=== PATIENT | female | born 1970 | race Caucasian/White ===

== ENCOUNTER 2018-11-24 06:01 | Day surgery (SDC) | payer MEDICAID, SELFPAY ==
[2018-10-19 13:03] VITALS: BMI 22.3
[2018-11-20 12:36] LABS: Hematocrit 44.8 % (37-47); Mean Corp Hgb Conc 33.5 g/gl (32-36); Mean Corpuscular Hgb 29.8 pg (27.0-32.0); Mean Corpuscular Volume 88.9 fL (81-99); Platelet Count 312 K/mm3 (150-450); RBC Distribution Width CV 13.3 % (11.6-14.6); Red Blood Count 5.04 M/mm3 (4.2-5.4); White Blood Count 9.7 K/mm3 (4.4-11.0)
[2018-11-20 12:37] LABS: Scan Indicated on CBC? Y/N NO
--- NOTE | 2018-11-20 13:29 | EKG12_ITS ---
Test Reason : PREOP Blood Pressure : / mmHG Vent. Rate : 055 BPM Atrial Rate : 055 BPM P-R Int : 162 ms QRS Dur : 084 ms QT Int : 406 ms P-R-T Axes : 074 066 070 degrees QTc Int : 388 ms Sinus bradycardia Otherwise normal ECG Confirmed by CHUCK HUBBARD, CHARU ([id number]), photograph editor MATHIEU LIVE ([id number]) on 11/21/2018 12:51:52 PM Referred By: Rashid Rogers Confirmed By:CHARU WOODS MD
[2018-11-24] VITALS (11 sets, daily range): BP systolic 74–118; BP diastolic 49–83; PULSE 51–73; RESP 12–18; TEMP 36.1–36.8; O2SAT 95–97; BMI 22.4
[2018-11-24] MEDS: Bupiv/Epi 0.25% 30 ML Vial (07:30)
--- NOTE | 2018-11-24 08:09 | OP.PCM_ITS ---
Problem List (1) Ventral incisional hernia Status: Acute Report of Operation Date of Procedure: 11/24/18 Pre-Operative Diagnosis: Incisional ventral hernia Post-Operative Diagnosis: Same Surgery/Procedure Performed:: Incisional ventral hernia repair with mesh Specimen's removed: None Description of Procedure: The patient was brought back to the operating room and MAC anesthesia was induced. The patient's abdomen was prepped and draped in the usual sterile fashion. Next a incision site was marked with a pen on the superior portion of the umbilicus. This area was then anesthetized with a mixture of Marcaine and lidocaine. Next an incision was made with scalpel and deepened to the hernia sac. The hernia sac was sharply excised from the surrounding areas the umbilical stalk was also divided from the fascia sharply. Next the area around the fascial defect was dissected free using electrocautery until clean fascia was identified circumferentially. Next the hernia contents were reduced and bluntly in the preperitoneal plane using the back of DeBakey clamps. There is no bleeding. Next a small ventralex ST mesh was placed into the hernia defect. The hernia defect measured approximately 1.5 cm. The mesh was secured to the anterior fascia circumferentially using interrupted 0 PDS sutures. Next the defect was closed using 2-0 PDS sutures. The incision was irrigated and suctioned dry. Next the umbilical stalk was tacked to the anterior fascia using a 3-0 Vicryl suture. Next the incision was closed with interrupted 3-0 Vicryl s utures and a running 4-0 Monocryl as well as Steri-Strips. A cotton ball and bandage were placed over the defect. The patient tolerated the procedure well and was brought to PACU in stable condition. Grafts/Implants Used: Small Ventralex ST mesh - Admit VTE Documentation VTE Mechan Device Prophylaxis: SCD's
--- NOTE | 2018-11-24 08:11 | PCM.DC.HER ---
Discharge Diet: Light diet - advance as tolerated Discharge Activity: Return to Normal Activity, May Not Drive - for 2-3 days or while taking narcotic pain meds., May Shower - with the bandage in place 1-2 days after surgery. Lifting Restrictions: 20 pounds for 4 weeks. Additional Activity Instructions:: Climbing stairs is fine, walking is encouraged. Sitting in bed may be uncomfortable. Sitting up using your lateral muscles (sitting up sideways) is usually more comfortable. Do not drive, work heavy equipment of sign legal documents for 24 hours. Call your doctor if your incision/area has: Continuous Slow Oozing, Sudden Increased Bleeding, Increased Pain/ Swelling, Increased Redness, Foul Smelling Discharge Call your doctor if you observe: Fever of 101 or Higher Suture Line Care: Avoid Pulling/Pushing, Avoid Pinching/Bending Change Dressing in (Days):: 3 - Leave steri-strips for 1 week. May protect with a guaze bandaid. Cleanse incision/area with: Keep Dressing Clean & Dry Allergies/Adverse Reactions: Allergies Penicillins [PCN] Allergy (Verified 11/17/18 10:58) Angioedema Sulfa (Sulfonamide Antibiotics) Allergy (Verified 11/17/18 10:58) Angioedema Medications to take at Discharge Hydrocodone Bitart/Apap 5-325 [Petaluma 5MG-325MG] 1 - 2 tablet PO Q6H PRN PRN 5 Days #20 tablet 11/24/18 The following prescriptions were given: Hydrocodone Bitart/Apap 5-325 [Petaluma 5MG-325MG] 1 - 2 tablet PO Q6H PRN PRN 5 Days #20 tablet PRN Reason: Pain Orders to be completed after discharge: 12 Lead EKG [[facility]] Time Frame: 11/17/18, Facility: [facility], Location: Cardiovascular Services CBC-Complete Blood Cnt No Diff Time Frame: 11/17/18, Location: Laboratory Primary Care Physician: Care Physician,No Primary [Primary Care Provider] - Test Results: Test results from this visit will be discussed in further detail at your follow-up appointment, if applicable. Please Follow Up With: Rashid Rogers MD When: Please call to schedule 2 week follow up appointment. [phone]
[2018-11-24] MEDS: HYDROcodone Bitartrate/Apap 5/325 Tablet PO (09:32)
== END 2018-11-24 11:08 | disposition home or self-care (01) ==
LOC: SDC 06:01 → AC 06:02
PROVIDERS: Referring Provider Surgery; Visit Provider Surgery
PROC: (CPT 49560; principal; 2018-11-24 07:15)
DX: K43.2 Incisional hernia without obstruction or gangrene (principal); Z87.891 Personal history of nicotine dependence
CPT/HCPCS: 00832; 49560; 49568; 36415; 85027; 93005; J7120; C1781; J2405